=== PATIENT | female | born 1965 | race Hispanic/Latino ===

== ENCOUNTER 2018-08-24 20:10 | Emergency (ER) | payer OTHER ==
[2018-08-24] MEDS ORDERED: ACETAMINOPHEN 500 MG TAB ONE (20:38)
[2018-08-24 21:18] LABS: Urine Blood NEGATIVE (NEG); Urine Glucose TRACE (NEG); Urine Protein TRACE (NEG); Urine pH 8.5 (5.0-7.0)
[2018-08-24] MEDS ORDERED: IBUPROFEN 400 MG TAB ONE (21:45)
[2018-08-24 21:59] LABS: Urine Bacteria NONE SEEN /HPF (<20); Urine RBC <5 /HPF (NONE SEEN)
[2018-08-24 22:00] LABS: Urine Culture Reflex Order NOT NEEDED
--- NOTE | 2018-08-24 22:00 | ER ---
Nurse's Notes [facility] Name: Jessie Espinosa Age: 52 yrs Sex: Female : 1965 Arrival Date: 08/24/2018 Time: 20:15 Bed 27 Private MD: Diagnosis: Streptococcal pharyngitis;Pain in left leg;Pain in right leg Presentation: 08/24 20:26 Presenting complaint: Patient states: Fever and chills with body aches that started aj today. Transition of care: patient was not received from another setting of care. Onset of symptoms was August 24, 2018. Risk Assessment: Do you want to hurt yourself or someone else? Patient reports no desire to harm self or others. Initial Sepsis Screen: Does the patient meet any 2 criteria? No. Patient's initial sepsis screen is negative. Does the patient have a suspected source of infection? No. Patient's initial sepsis screen is negative. Care prior to arrival: None. 20:26 Method Of Arrival: Ambulatory aj 20:26 Acuity: JAMES 3 aj Triage Assessment: 20:28 General: Appears in no apparent distress. uncomfortable, Behavior is calm, cooperative, aj appropriate for age. Pain: Complains of pain in right leg and left leg. Neuro: Level of Consciousness is awake, alert, obeys commands, Oriented to person, place, time, situation, Appropriate for age. Respiratory: Airway is patent Trachea midline Respiratory effort is even, unlabored, Respiratory pattern is regular, symmetrical. Derm: Skin is intact, is healthy with good turgor, Skin is pink, warm \T\ dry. normal. 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 - Social history:: Smoking status: Patient/guardian denies using tobacco. - Ebola Screening: : Patient negative for fever greater than or equal to 101.5 degrees Fahrenheit, and additional compatible Ebola Virus Disease symptoms Patient denies exposure to infectious person Patient denies travel to an Ebola-affected area in the 21 days before illness onset No symptoms or risks identified at this time. Screenin:07 Abuse screen: Denies threats or abuse. Denies injuries from another. Nutritional mg2 screening: No deficits noted. Tuberculosis screening: No symptoms or risk factors identified. Fall Risk None identified. Assessment: 21:07 General: Appears in no apparent distress. comfortable, Behavior is calm, cooperative. mg2 Pain: Complains of pain in left leg and right leg Pain does not radiate. Pain currently is 2 out of 10 on a pain scale. Quality of pain is described as aching. Neuro: Level of Consciousness is awake, alert, obeys commands, Oriented to person, place, time, situation. Cardiovascular: Capillary refill < 3 seconds Patient's skin is warm and dry. Respiratory: Airway is patent Respiratory effort is even, unlabored, Respiratory pattern is regular, symmetrical. GI: No signs and/or symptoms were reported involving the gastrointestinal system. : No signs and/or symptoms were reported regarding the genitourinary system. EENT: No signs and/or symptoms were reported regarding the EENT system. Derm: Skin is intact, Skin is pink, warm \T\ dry. normal. Musculoskeletal: Circulation, motion, and sensation intact. Vital Signs: 20:28 BP 128 / 83; Pulse 117; Resp 20; Temp 101.8; Pulse Ox 99% on R/A; Weight 60.33 kg; aj Height 5 ft. 0 in. (152.40 cm); 22:52 BP 122 / 78; Pulse 95; Resp 18; Temp 97.9; Pulse Ox 100% on R/A; Pain 0/10; mg2 20:28 Body Mass Index 25.97 (60.33 kg, 152.40 cm) aj ED Course: 20:15 Patient arrived in ED. ds1 20:27 Triage completed. aj 20:28 Arm band placed on left wrist. Patient placed in an exam room. aj 20:32 Morales Peace RN is Primary Nurse. mg2 20:42 Jose Luis Higgins PA is PHCP. cp 20:42 Jose Luis Truong MD is Attending Physician. cp 21:06 No provider procedures requiring assistance completed. Patient did not have IV access mg2 during this emergency room visit. 21:08 Patient has correct armband on for positive identification. Pulse ox on. NIBP on. mg2 21:32 ultrasound at bedside. tl3 21:32 PO fluids given. tl3 22:01 US Extremity Venous W Compression Liu In Process Unspecified. EDMS Administered Medications: 20:35 Drug: Tylenol 1000 mg Route: PO; aj 21:39 Follow up: Response: No adverse reaction mg2 21:39 Drug: Ibuprofen 800 mg Route: PO; mg2 22:52 Follow up: Response: No adverse reaction; Marked relief of symptoms mg2 22:13 Drug: penicillin G Benzathine 2.4 million units {Note: 2ml on each buttocks.} Route: mg2 IM; Site: left gluteus; 22:52 Follow up: Response: No adverse reaction mg2 Outcome: 21:59 Discharge ordered by MD. cp 22:52 Discharged to home ambulatory, with family. mg2 22:52 Condition: stable 22:52 Discharge instructions given to patient, family, Instructed on discharge instructions, follow up and referral plans. medication usage, Demonstrated understanding of instructions, follow-up care, medications, Prescriptions given X 1. 22:53 Patient left the ED. mg2 Signatures: Dispatcher [employer] EDMS Elva Agarwal, RN RN Iliana Foote ds1 Jose Luis Higgins PA PA Majo Calderon, RN RN tl3 Morales Peace RN RN mg2
--- NOTE | 2018-08-24 22:00 | EDPHYS ---
Physician Documentation [facility] Name: Jessie Espinosa Age: 52 yrs Sex: Female : 1965 Arrival Date: 08/24/2018 Time: 20:15 Bed 27 Private MD: ED Physician Jose Luis Truong HPI: 08/24 20:45 This 52 yrs old Female presents to ER via Ambulatory with complaints of Leg cp Pain. 20:45 The patient presents with pain, that is acute, tenderness. The complaints affect the cp right leg and left leg. Associated signs and symptoms: Pertinent positives: calf tenderness, fever, body aches, sore throat. Treatment prior to arrival includes: no previous treatment. Patient reports grandchild recently diagnosed with strep. 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 - Social history:: Smoking status: Patient/guardian denies using tobacco. - Ebola Screening: : Patient negative for fever greater than or equal to 101.5 degrees Fahrenheit, and additional compatible Ebola Virus Disease symptoms Patient denies exposure to infectious person Patient denies travel to an Ebola-affected area in the 21 days before illness onset No symptoms or risks identified at this time. ROS: 20:50 Constitutional: Positive for body aches, fever, Negative for poor PO intake. cp 20:50 Eyes: Negative for injury, pain, redness, and discharge. cp 20:50 ENT: Positive for sore throat, Negative for drainage from ear(s), ear pain, difficulty swallowing, difficulty handling secretions. 20:50 Cardiovascular: Negative for chest pain, edema, palpitations. 20:50 Respiratory: Negative for cough, dyspnea on exertion, shortness of breath, wheezing. 20:50 Abdomen/GI: Negative for abdominal pain, nausea, vomiting, and diarrhea, anorexia, black/tarry stool, rectal bleeding. 20:50 Back: Positive for pain at rest, pain with movement. 20:50 MS/extremity: Positive for pain, of the right leg and left leg. 20:50 Skin: Negative for cellulitis, rash. 20:50 Neuro: Negative for altered mental status, headache, syncope, near syncope, weakness. 20:50 All other systems are negative. Exam: 21:00 Constitutional: The patient appears in no acute distress, alert, awake, cp non-diaphoretic, non-toxic, well developed, well nourished, febrile. 21:00 Head/Face: Normocephalic, atraumatic. Eyes: Pupils equal round and reactive to light, cp extra-ocular motions intact. Lids and lashes normal. Conjunctiva and sclera are non-icteric and not injected. Cornea within normal limits. Periorbital areas with no swelling, redness, or edema. 21:00 ENT: External ear(s): are unremarkable, Ear canal(s): are normal, clear, TM's: dullness, bilaterally, Nose: is normal, Mouth: Lips: moist, Oral mucosa: pink and intact, moist, Posterior pharynx: Airway: no evidence of obstruction, patent, Tonsils: with erythema, no enlargement, no exudate, swelling, is not appreciated, erythema, that is moderate, exudate, is not appreciated, Voice: is normal. 21:00 Neck: ROM/movement: is normal, is supple, without pain, no range of motions limitations, no meningismus, no nuchal rigidity. 21:00 Chest/axilla: Inspection: normal, Palpation: is normal, no crepitus, no tenderness. 21:00 Cardiovascular: Rate: tachycardic, Rhythm: regular. 21:00 Respiratory: the patient does not display signs of respiratory distress, Respirations: normal, no use of accessory muscles, no retractions, no splinting, no tachypnea, labored breathing, is not present, Breath sounds: are clear throughout, no decreased breath sounds, no stridor, no wheezing. 21:00 Abdomen/GI: Inspection: abdomen appears normal, Palpation: abdomen is soft and non-tender, in all quadrants, rebound tenderness, is not appreciated, voluntary guarding, is not appreciated, involuntary guarding, is not appreciated. 21:00 Back: pain, that is mild, CVA tenderness, is absent. 21:00 Skin: cellulitis, is not appreciated, no rash present. 21:00 Neuro: Orientation: to person, place \T\ time. Mentation: lucid, able to follow commands, Cerebellar function: is grossly normal, Motor: moves all fours, strength is normal, Sensation: no obvious gross deficits, Gait: is steady. Vital Signs: 20:28 BP 128 / 83; Pulse 117; Resp 20; Temp 101.8; Pulse Ox 99% on R/A; Weight 60.33 kg; aj Height 5 ft. 0 in. (152.40 cm); 22:52 BP 122 / 78; Pulse 95; Resp 18; Temp 97.9; Pulse Ox 100% on R/A; Pain 0/10; mg2 20:28 Body Mass Index 25.97 (60.33 kg, 152.40 cm) aj MDM: 20:42 Patient medically screened. cp 21:00 Differential diagnosis: strep throat, UTI, influenza, DVT. cp 21:55 Data reviewed: vital signs, nurses notes, lab test result(s), radiologic studies, cp ultrasound. 21:55 Counseling: I had a detailed discussion with the patient and/or guardian regarding: the cp historical points, exam findings, and any diagnostic results supporting the discharge/admit diagnosis, lab results, radiology results, to return to the emergency department if symptoms worsen or persist or if there are any questions or concerns that arise at home. Response to treatment: the patient's symptoms have markedly improved after treatment, and as a result, I will discharge patient. ED course: VSS. Strep test positive. Will treat with IM Bicillin and discharge to home for continued monitoring. 08/24 20:35 Order name: Strep; Complete Time: 21:33 08/24 21:33 Interpretation: Abnormal: GP A STREP SC \T\nbsp; GROUP A STREP SCREEN-- \T\nbsp; \T\nbsp; cp POSITIVE. 08/24 20:35 Order name: Flu; Complete Time: 21:51 aj 08/24 21:52 Interpretation: Reviewed. 08/24 21:02 Order name: US Extremity Venous W Compression Liu cp 08/24 21:02 Order name: Urine Microscopic Only; Complete Time: 22:00 cp 08/24 21:16 Order name: Urine Dipstick--Ancillary (enter results); Complete Time: 21:33 ms 08/24 21:34 Interpretation: Normal except: UPH 8.5. cp 08/24 21:16 Order name: Urine --Ancillary (enter results); Complete Time: 21:33 ms 08/24 21:02 Order name: Urine Dipstick-Ancillary (obtain specimen); Complete Time: 21:07 cp 08/24 21:02 Order name: Urine Test (obtain specimen); Complete Time: 21:07 cp Administered Medications: 20:35 Drug: Tylenol 1000 mg Route: PO; aj 21:39 Follow up: Response: No adverse reaction mg2 21:39 Drug: Ibuprofen 800 mg Route: PO; mg2 22:52 Follow up: Response: No adverse reaction; Marked relief of symptoms mg2 22:13 Drug: penicillin G Benzathine 2.4 million units {Note: 2ml on each buttocks.} Route: mg2 IM; Site: left gluteus; 22:52 Follow up: Response: No adverse reaction mg2 Disposition: 08/24/18 21:59 Discharged to Home. Impression: Streptococcal pharyngitis, Pain in left leg, Pain in right leg. - Condition is Stable. - Discharge Instructions: Musculoskeletal Pain, Strep Throat. - Prescriptions for Anaprox DS 550 mg Oral Tablet - take 1 tablet by ORAL route every 12 hours As needed; 20 tablet. - Medication Reconciliation Form, Thank You Letter, Antibiotic Education, Prescription Opioid Use, Work release form form. - Follow up: Private Physician; When: 2 - 3 days; Reason: Recheck today's complaints. - Problem is new. - Symptoms have improved. Addendum: 08/26/2018 06:40 Co-signature as Attending Physician, Jose Luis Truong MD I agree with the assessment and c bocanegra plan of care. Signatures: Dispatcher [employer] Elva Moreau RN RN aj Anderson, Corey, MD MD cha Page, Corey, PA PA cp Gardose, Michele, RN RN mg2 Corrections: (The following items were deleted from the chart) 08/24 22:53 21:59 08/24/2018 21:59 Discharged to Home. Impression: Streptococcal pharyngitis; Pain mg2 in left leg; Pain in right leg. Condition is Stable. Forms are Medication Reconciliation Form, Thank You Letter, Antibiotic Education, Prescription Opioid Use. Follow up: Private Physician; When: 2 - 3 days; Reason: Recheck today's complaints. Problem is new. Symptoms have improved. cp
[2018-08-24] MEDS ORDERED: PEN G BENZ LA 2.4 MU/4 ML SYRINGE IM ONE (22:04)
[2018-08-24 23:36] VITALS: BP 122/78; TEMP 97.9; O2SAT 100
--- NOTE | 2018-08-25 11:13 | RAD REPORT ---
EXAM DESCRIPTION: US - Extrem Venous W Compress Liu - 08/24/2018 10:00 pm CLINICAL HISTORY: PAIN Bilateral leg edema and swelling. COMPARISON: No comparisons TECHNIQUE: Real-time sonographic interrogation of the left and right lower extremity deep venous sys tems was performed. FINDINGS: Normal compressibility, flow augmentation, phasic flow and spontaneous flow is identified in both the left and right lower extremity deep venous systems. IMPRESSION: No sonographic evidence of left or right lower extremity deep venous thrombosis.
== END 2018-08-24 22:53 | disposition home or self-care (01) ==
LOC: ER 20:10
DX: J02.0 Streptococcal pharyngitis (principal); M79.605 Pain in left leg; M79.604 Pain in right leg; E78.00 Pure hypercholesterolemia, unspecified
CPT/HCPCS: 81003; 81015; 81025; 87081; 87804; 93970; 96372; 99284; J0561

== ENCOUNTER 2018-11-25 21:53 | Emergency (ER) | payer OTHER ==
--- OUTSIDE RECORDS SUMMARY | 2018-11-25 21:56 | XMS REPORT ---
:1965 [facility] Address [address] Hernandez [address] [place] [id number] Care Team Providers Name Role Phone Unavailable Unavailable Unavailable Payers Payer Name Policy Type Policy Number Effective Date Expiration Date Problems This patient has no known problems. Allergies, Adverse Reactions, Alerts Allergy Allergy Status Severity Reaction(s) Onset Inactive Treating Comments Name Type Date Date Clinician No Known DA Active U 2018-08 Allergies - 00:00:0 0 No Known DA Active U 2018-08 Allergies - 00:00:0 0 No Known DA Active MO 2011-06 Drug - Allergies 00:00:0 0 Medications This patient has no known medications.
[2018-11-25 22:39] LABS: Absolute Lymphocytes (CBC) 0.9 K/uL (0.7-4.9); Absolute Monocytes 0.3 K/uL (0.1-1.3); Absolute Neutrophil 6.4 K/uL (1.8-8.0); Basophils % 0.2 % (0-1.3); Hematocrit 41.8 % (36.0-45.0); Lymphocytes % 11.6 % (15.3-44.8); MPV 8.1 fL (7.6-11.3); Monocytes % 4.2 % (3.3-12.3); RBC Red Blood Cell Count 5.03 M/uL (3.86-4.86)
[2018-11-25] MEDS ORDERED: ONDANSETRON 4 MG/2 ML VIAL ONE (22:44)
[2018-11-25] MEDS ORDERED: NA CHLORIDE 0.9% 1,000 ML ONE (22:44)
[2018-11-25] MEDS ORDERED: KETOROLAC 30 MG/ML INJ ONE (22:52)
[2018-11-25 22:53] LABS: ALT/SGPT 31 U/L (12-78); AST/SGOT 20 U/L (15-37); Albumin 4.1 g/dL (3.4-5.0); Alkaline Phosphatase 103 U/L (45-117); BUN Blood Urea Nitrogen 13 mg/dL (7-18); Bicarbonate 29 mmol/L (21-32); Bilirubin Direct 0.1 mg/dL (0-0.2); Bilirubin Total 0.6 mg/dL (0.2-1.0); Glucose Level 134 mg/dL (74-106); Lipase 66 U/L (73-393); Potassium 3.7 mmol/L (3.5-5.1); Protein, Total 7.9 g/dL (6.4-8.2); Sodium Level 135 mmol/L (136-145)
[2018-11-26] MEDS ORDERED: DICYCLOMINE HCL 10 MG CAP ONE (00:38)
--- NOTE | 2018-11-26 01:10 | ER ---
Nurse's Notes [facility] Name: Jessie Espinosa Age: 52 yrs Sex: Female : 1965 Arrival Date: 11/25/2018 Time: 21:56 Bed 19 Private MD: Gian Anne Diagnosis: Vomiting;Diarrhea, unspecified Presentation: 11/25 22:15 Presenting complaint: Patient states: that she was traveling from [place] and ate some fc hamburgers her made. This am started to have abd cramping, vomiting and diarrhea. Transition of care: patient was not received from another setting of care. Onset of symptoms was November 25, 2018. Risk Assessment: Do you want to hurt yourself or someone else? Patient reports no desire to harm self or others. Initial Sepsis Screen: Does the patient meet any 2 criteria? HR > 90 bpm. Yes Does the patient have a suspected source of infection? No. Patient's initial sepsis screen is negative. Care prior to arrival: None. 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 - Social history:: Smoking status: Patient/guardian denies using tobacco, Patient/guardian denies using alcohol, street drugs. - Ebola Screening: : Patient negative for fever greater than or equal to 101.5 degrees Fahrenheit, and additional compatible Ebola Virus Disease symptoms Patient denies exposure to infectious person Patient denies travel to an Ebola-affected area in the 21 days before illness onset. Screenin:17 Abuse screen: Denies threats or abuse. Nutritional screening: No deficits noted. fc Tuberculosis screening: No symptoms or risk factors identified. Fall Risk None identified. Assessment: 22:22 General: Appears in no apparent distress. uncomfortable, Behavior is calm, cooperative, jd3 appropriate for age. Pain: Complains of pain in abdomen Quality of pain is described as crampy, tender. Neuro: Level of Consciousness is awake, alert, obeys commands, Oriented to person, place, time, situation. Cardiovascular: Capillary refill < 3 seconds Patient's skin is warm and dry. Respiratory: Airway is patent Respiratory effort is even, unlabored, Respiratory pattern is regular, symmetrical, Breath sounds are clear bilaterally. GI: Abdomen is round non-distended, Bowel sounds present X 4 quads. Abd is soft Abdomen is tender to palpation Reports diarrhea, nausea, vomiting. : No signs and/or symptoms were reported regarding the genitourinary system. EENT: No signs and/or symptoms were reported regarding the EENT system. Derm: Skin is intact, Skin is dry, Skin is normal, Skin temperature is warm. Musculoskeletal: Circulation, motion, and sensation intact. Range of motion: intact in all extremities. 23:42 Reassessment: Patient appears in no apparent distress at this time. Patient and/or jd3 family updated on plan of care and expected duration. Pain level reassessed. Patient is alert, oriented x 3, equal unlabored respirations, skin warm/dry/pink. Vital Signs: 22:15 BP 129 / 90; Pulse 108; Resp 18; Temp 100.0(O); Pulse Ox 98% on R/A; Weight 59.87 kg fc (R); Height 5 ft. 0 in. (152.40 cm) (R); Pain 10/10; 23:42 BP 112 / 73; Pulse 91; Resp 17 S; Pulse Ox 95% on R/A; jd3 11/26 00:42 BP 114 / 79; Pulse 92; Resp 16 S; Pulse Ox 95% on R/A; jd3 11/25 22:15 Body Mass Index 25.78 (59.87 kg, 152.40 cm) ED Course: 11/25 21:56 Patient arrived in ED. am2 21:56 Gian Anne MD is Private Physician. am2 22:13 Frank Tran MD is Attending Physician. gs 22:13 Josué Jeffrey RN is Primary Nurse. jd3 22:15 Arm band placed on Patient placed in an exam room, on a stretcher. fc 22:16 Triage completed. fc 22:17 Patient has correct armband on for positive identification. Bed in low position. Call light in reach. Side rails up X 1. Pulse ox on. NIBP on. 22:17 No provider procedures requiring assistance completed. 22:30 Inserted saline lock: 22 gauge in right antecubital area, using aseptic technique. Blood collected. 22:38 Initial lab(s) drawn, by me, sent to lab. 11/26 01:35 IV discontinued, intact, bleeding controlled, No redness/swelling at site. Pressure cc3 dressing applied. Administered Medications: 11/25 22:40 Drug: NS 0.9% 1000 ml Route: IV; Rate: 1 bolus; Site: right antecubital; [facility] 11/26 01:01 Follow up: Response: No adverse reaction; IV Status: Completed infusion [facility] 11/25 22:41 Drug: Zofran 4 mg Route: IVP; Site: right antecubital; d3 11/26 01:01 Follow up: Response: No adverse reaction [facility] 11/25 22:50 Drug: TORadol 15 mg Route: IVP; Site: right antecubital; jd3 11/26 01:00 Follow up: Response: No adverse reaction jd3 00:33 Drug: Bentyl 10 mg Route: PO; jd3 01:01 Follow up: Response: No adverse reaction jd3 01:30 Drug: [place] 5 mg-325 mg 1 tabs Route: PO; cc3 01:35 Follow up: Response: No adverse reaction cc3 Outcome: 01:09 Discharge ordered by . 01:35 Discharged to home ambulatory, with family. cc3 01:35 Condition: stable 01:35 Discharge instructions given to patient, family, Instructed on discharge instructions, follow up and referral plans. medication usage, Demonstrated understanding of instructions, follow-up care, medications, Prescriptions given X 1. 01:37 Patient left the ED. cc3 Signatures: Janine Barry RN RN Elva Freitas Gregory, MD MD gs Davies, Jonathon, RN RN jAnh Woodruff cc3 Inez Vargas
--- NOTE | 2018-11-26 01:10 | EDPHYS ---
Physician Documentation [facility] Name: Jessie Espinosa Age: 52 yrs Sex: Female : 1965 Arrival Date: 11/25/2018 Time: 21:56 Bed 19 Private MD: Gian Anne ED Physician Frank Tran HPI: 11/26 00:58 This 52 yrs old Female presents to ER via Ambulatory with complaints of gs Vomiting/Diarrhea, Abdominal Cramping. 00:58 The patient presents to the emergency department with nausea, vomiting, diarrhea, gs abdominal pain, of the right upper quadrant, left upper quadrant, right lower quadrant and left lower quadrant, described as crampy. Onset: The symptoms/episode began/occurred gradually. Possible causes: bad food exposure. The symptoms are aggravated by food , The symptoms are alleviated by nothing. Associated signs and symptoms: Pertinent negatives: constipation, dysuria, fever, GI bleeding. Severity of symptoms: At their worst the symptoms were moderate in the emergency department the symptoms have improved moderately. The patient has experienced similar episodes in the past, a few times. 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 - Social history:: Smoking status: Patient/guardian denies using tobacco, Patient/guardian denies using alcohol, street drugs. - Ebola Screening: : Patient negative for fever greater than or equal to 101.5 degrees Fahrenheit, and additional compatible Ebola Virus Disease symptoms Patient denies exposure to infectious person Patient denies travel to an Ebola-affected area in the 21 days before illness onset. ROS: 11/26 00:58 All other systems are negative. gs Exam: 00:58 Head/Face: Normocephalic, atraumatic. Eyes: Pupils equal round and reactive to light, gs extra-ocular motions intact. Lids and lashes normal. Conjunctiva and sclera are non-icteric and not injected. Cornea within normal limits. Periorbital areas with no swelling, redness, or edema. ENT: Nares patent. No nasal discharge, no septal abnormalities noted. Tympanic membranes are normal and external auditory canals are clear. Oropharynx with no redness, swelling, or masses, exudates, or evidence of obstruction, uvula midline. Mucous membranes moist. Neck: Trachea midline, no thyromegaly or masses palpated, and no cervical lymphadenopathy. Supple, full range of motion without nuchal rigidity, or vertebral point tenderness. No Meningismus. Chest/axilla: Normal chest wall appearance and motion. Nontender with no deformity. No lesions are appreciated. Cardiovascular: Regular rate and rhythm with a normal S1 and S2. No gallops, murmurs, or rubs. Normal PMI, no JVD. No pulse deficits. Respiratory: Lungs have equal breath sounds bilaterally, clear to auscultation and percussion. No rales, rhonchi or wheezes noted. No increased work of breathing, no retractions or nasal flaring. Back: No spinal tenderness. No costovertebral tenderness. Full range of motion. Skin: Warm, dry with normal turgor. Normal color with no rashes, no lesions, and no evidence of cellulitis. MS/ Extremity: Pulses equal, no cyanosis. Neurovascular intact. Full, normal range of motion. 00:58 Constitutional: The patient appears alert, awake. 00:58 Abdomen/GI: Bowel sounds: normal, Palpation: mild abdominal tenderness, in all quadrants, mass, is not appreciated, rebound tenderness, is not appreciated, voluntary guarding, is not appreciated, involuntary guarding, is not appreciated. Vital Signs: 11/25 22:15 BP 129 / 90; Pulse 108; Resp 18; Temp 100.0(O); Pulse Ox 98% on R/A; Weight 59.87 kg fc (R); Height 5 ft. 0 in. (152.40 cm) (R); Pain 10/10; 23:42 BP 112 / 73; Pulse 91; Resp 17 S; Pulse Ox 95% on R/A; jd3 11/26 00:42 BP 114 / 79; Pulse 92; Resp 16 S; Pulse Ox 95% on R/A; jd3 11/25 22:15 Body Mass Index 25.78 (59.87 kg, 152.40 cm) fc MDM: 11/25 22:28 Patient medically screened. 11/26 00:58 Differential diagnosis: diverticulitis, viral gastroenteritis, gastroenteritis. Data reviewed: vital signs, nurses notes. Response to treatment: the patient's symptoms have markedly improved after treatment, patient is well hydrated. and as a result, I will discharge patient. 11/25 22:30 Order name: Basic Metabolic Panel; Complete Time: 00:03 11/25 22:30 Order name: CBC with Diff; Complete Time: 00:03 11/25 22:30 Order name: Hepatic Function; Complete Time: 00: 11/25 22:30 Order name: Lipase; Complete Time: 00: 11/25 22:30 Order name: Urine Microscopic Only; Complete Time: : 11/26 01:00 Order name: Urine Dipstick--Ancillary (enter results); Complete Time: : [facility] 11/25 22:30 Order name: IV Saline Lock; Complete Time: : 11/25 22:31 Order name: EKG; Complete Time: : [facility] 11/26 01:00 Order name: Urine --Ancillary (enter results); Complete Time: : [facility] 11/25 22:30 Order name: Labs collected and sent; Complete Time: : 11/25 22:30 Order name: Urine Test (obtain specimen); Complete Time: 01:02 11/25 22:30 Order name: Urine Dipstick-Ancillary (obtain specimen); Complete Time: 01: 11/25 22:30 Order name: EKG - Nurse/Tech; Complete Time: 23:26 Administered Medications: 11/25 22:40 Drug: NS 0.9% 1000 ml Route: IV; Rate: 1 bolus; Site: right antecubital; [facility] 11/26 01:01 Follow up: Response: No adverse reaction; IV Status: Completed infusion [facility] 11/25 22:41 Drug: Zofran 4 mg Route: IVP; Site: right antecubital; [facility] 11/26 01:01 Follow up: Response: No adverse reaction [facility] 11/25 22:50 Drug: TORadol 15 mg Route: IVP; Site: right antecubital; jd3 11/26 01:00 Follow up: Response: No adverse reaction jd3 00:33 Drug: Bentyl 10 mg Route: PO; jd3 01:01 Follow up: Response: No adverse reaction jd3 01:30 Drug: Bantam 5 mg-325 mg 1 tabs Route: PO; cc3 01:35 Follow up: Response: No adverse reaction cc3 Disposition: 11/26/18 01:09 Discharged to Home. Impression: Vomiting, Diarrhea, unspecified. - Condition is Stable. - Discharge Instructions: Diarrhea, Adult, Nausea and Vomiting, Adult. - Prescriptions for Zofran 4 mg Oral Tablet - take 1 tablet by ORAL route every 12 hours As needed; 6 tablet. - Medication Reconciliation Form, Thank You Letter, Antibiotic Education, Prescription Opioid Use form. - Follow up: Private Physician; When: 2 - 3 days; Reason: Re-evaluation by your physician. Signatures: Dispatcher [employer] EDJanine Agarwal RN RN Frank Tran MD MD Josué Jeffrey RN RN jAnh Woodruff cc3 Corrections: (The following items were deleted from the chart) 01:37 01:09 11/26/2018 01:09 Discharged to Home. Impression: Vomiting; Diarrhea, unspecified. cc3 Condition is Stable. Forms are Medication Reconciliation Form, Thank You Letter, Antibiotic Education, Prescription Opioid Use. Follow up: Private Physician; When: 2 - 3 days; Reason: Re-evaluation by your physician.
[2018-11-26 01:19] LABS: Urine Blood NEGATIVE (NEG); Urine Glucose NEGATIVE (NEG); Urine Protein NEGATIVE (NEG); Urine Specific Gravity <1.005 (1.005-1.030); Urine pH 6.5 (5.0-7.0)
[2018-11-26 01:29] LABS: Urine Bacteria <20 /HPF (<20); Urine Culture Reflex Order NOT NEEDED; Urine RBC <5 /HPF (NONE SEEN)
[2018-11-26] MEDS ORDERED: HYDROCODONE/APAP 5/325 MG TAB ONE (01:37)
[2018-11-26 01:50] VITALS: TEMP 100
[2018-11-26 01:51] VITALS: O2SAT 95
[2018-11-26 01:53] VITALS: BP 114/79
--- NOTE | 2018-11-26 08:45 | EKG ---
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
== END 2018-11-26 01:37 | disposition home or self-care (01) ==
LOC: ER 21:53
DX: R11.10 Vomiting, unspecified (principal); R19.7 Diarrhea, unspecified; I10 Essential (primary) hypertension
CPT/HCPCS: 36415; 80048; 80076; 81003; 81015; 81025; 83690; 85025; 93005; 96361; 96374; 96375; 99284; J2405; J7030

== ENCOUNTER 2018-11-27 18:18 | Emergency (ER) | payer OTHER ==
--- OUTSIDE RECORDS SUMMARY | 2018-11-27 18:21 | XMS REPORT ---
:1965 [facility] [address] Hernandez [address] [place] [id number] Care Team Providers Name Role Phone Unavailable [...] - 00:00:0 0 No Known DA Active [place] 2011-06 Drug - Allergies 00:00:0 0 Medications This patient has no known medications.
--- NOTE | 2018-11-27 19:08 | RAD REPORT ---
EXAM DESCRIPTION: RAD - Elbow Left 3 View - 11/27/2018 6:55 pm CLINICAL HISTORY: PAIN COMPARISON: No comparisons FINDINGS: No fracture or dislocation is seen. No joint effusion.
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
[2018-11-27] MEDS ORDERED: IBUPROFEN 400 MG TAB ONE (19:57)
[2018-11-27 20:08] VITALS: BP 143/92; TEMP 99.2; O2SAT 99
== END 2018-11-27 19:55 | disposition home or self-care (01) ==
LOC: ER 18:18
DX: S50.02XA Contusion of left elbow, initial encounter (principal); W22.8XXA Striking against or struck by other objects, initial encounter; Y92.009 Unspecified place in unspecified non-institutional (private) residence as the place of occurrence of the external cause
CPT/HCPCS: 99283

== ENCOUNTER 2019-04-16 01:55 | Emergency (ER) | payer OTHER, SELFPAY ==
--- OUTSIDE RECORDS SUMMARY | 2019-04-16 01:57 | XMS REPORT ---
:1965 [facility] [address] Hernandez [address] [place] [address] Care Team Providers Name Role Phone Unavailable [...] - 00:00:0 0 No Known DA Active [place] 2011-06 Drug - Allergies 00:00:0 0 Medications This patient has no known medications.
[2019-04-16] MEDS ORDERED: KETOROLAC 30 MG/ML INJ ONE (02:56)
[2019-04-16 03:18] LABS: Urine Culture Reflex Order NOT NEEDED
[2019-04-16 03:19] LABS: Urine Bacteria <20 /HPF (<20); Urine RBC 20-50 /HPF (NONE SEEN)
[2019-04-16 03:20] LABS: Urine Blood 3+ (NEG); Urine Glucose TRACE (NEG); Urine Protein 3+ (NEG)
--- NOTE | 2019-04-16 03:24 | ER ---
Nurse's Notes [facility] Name: Jessie Espinosa Age: 53 yrs Sex: Female : 1965 Arrival Date: 04/16/2019 Time: 02:00 Bed 8 Private MD: Gian Anne Diagnosis: Urinary tract infection, site not specified Presentation: 04/16 02:15 Presenting complaint: Patient states: she woke up around midnight and is having bb abdominal pain with difficulty urinating. Transition of care: patient was not received from another setting of care. Onset of symptoms was April 16, 2019. Risk Assessment: Do you want to hurt yourself or someone else? Patient reports no desire to harm self or others. Initial Sepsis Screen: Does the patient meet any 2 criteria? No. Patient's initial sepsis screen is negative. Does the patient have a suspected source of infection? No. Patient's initial sepsis screen is negative. Care prior to arrival: None. 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 - Social history:: Smoking status: unknown. - Ebola Screening: : No symptoms or risks identified at this time. Screenin:35 Abuse screen: Denies threats or abuse. Denies injuries from another. Nutritional aa1 screening: No deficits noted. Tuberculosis screening: No symptoms or risk factors identified. Fall Risk None identified. Assessment: 02:35 General: Appears in no apparent distress. comfortable, Behavior is calm, cooperative, aa1 appropriate for age. Pain: Complains of pain in suprapubic area Is continuous. Neuro: Level of Consciousness is awake, alert, obeys commands, Oriented to person, place, time, situation, Moves all extremities. Full function Gait is steady. Respiratory: Airway is patent Respiratory effort is even, unlabored, Respiratory pattern is regular, symmetrical. GI: Abdomen is non-distended, Bowel sounds present X 4 quads. Abd is soft X 4 quads Abdomen is tender to palpation in suprapubic area. : Reports pain with urination, urgency. EENT: No signs and/or symptoms were reported regarding the EENT system. Derm: Skin is intact, is healthy with good turgor, Skin is pink, warm \T\ dry. Musculoskeletal: Circulation, motion, and sensation intact. Capillary refill < 3 seconds. 03:31 Reassessment: Patient appears in no apparent distress at this time. Patient is alert, aa1 oriented x 3, equal unlabored respirations, skin warm/dry/pink. Discussed d/c \T\ f/u instructions with pt; denies questions or concerns at this time. Ambulatory to lobby with steady gait. Vital Signs: 02:18 BP 133 / 83; Pulse 70; Resp 16 S; Temp 97.8(O); Pulse Ox 100% on R/A; Weight 58.97 kg bb (R); Height 5 ft. 0 in. (152.40 cm) (R); Pain 9/10; 03:31 BP 129 / 78; Pulse 73; Resp 16; Temp 97.9; Pulse Ox 99% on R/A; Pain 5/10; aa1 02:18 Body Mass Index 25.39 (58.97 kg, 152.40 cm) bb ED Course: 02:00 Patient arrived in ED. es 02:00 Gian Anne MD is Private Physician. es 02:17 [facility] jr[facility] 02:17 Jose Luis Truong MD is Attending Physician. jr8 02:17 Triage completed. bb 02:18 Arm band placed on Patient placed in an exam room, on a stretcher, on pulse oximetry. bb 02:35 Patient has correct armband on for positive identification. Placed in gown. Bed in low aa1 position. Call light in reach. Pulse ox on. NIBP on. Warm blanket given. 02:46 Urine collected: clean catch specimen, clear. aa1 02:57 Haritha Loza, ADRIANNA is Primary Nurse. aa1 03:23 Gian Anne MD is Referral Physician. jr8 03:31 No provider procedures requiring assistance completed. Patient did not have IV access aa1 during this emergency room visit. Administered Medications: 02:45 Drug: TORadol - Ketorolac 15 mg Route: IM; Site: left deltoid; aa1 03:33 Follow up: Response: No adverse reaction; Pain is decreased aa1 03:37 Drug: Macrobid 100 mg Route: PO; aa1 03:37 Follow up: Response: Medication administered at discharge. aa1 Outcome: 03:23 Discharge ordered by . jr8 03:31 Discharged to home ambulatory. aa1 03:31 Condition: good 03:31 Discharge instructions given to patient, Instructed on discharge instructions, follow up and referral plans. medication usage, Demonstrated understanding of instructions, follow-up care, medications, Prescriptions given X 2. 03:38 Patient left the ED. aa1 Signatures: Haritha Loza RN RN aa1 Asha Melo Brenda, RN RN Nawaf Zhang PA PA jr8
--- NOTE | 2019-04-16 03:24 | EDPHYS ---
Physician Documentation [facility] Name: Jessie Espinosa Age: 53 yrs Sex: Female : 1965 Arrival Date: 04/16/2019 Time: 02:00 Bed 8 Private MD: Gian Anne ED Physician Jose Luis Truong HPI: 04/16 02:48 This 53 yrs old Female presents to ER via Ambulatory with complaints of jr8 Urgency, Abdominal pain. 02:48 The patient presents with urinary symptoms, frequency, urgency. Onset: The jr8 symptoms/episode began/occurred acutely, today. Modifying factors: The symptoms are alleviated by nothing, the symptoms are aggravated by nothing. Associated signs and symptoms: Pertinent positives: abdominal pain. Severity of symptoms: At their worst the symptoms were moderate, in the emergency department the symptoms are unchanged. The patient has not experienced similar symptoms in the past. The patient has not recently seen a physician. 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 - Social history:: Smoking status: unknown. - Ebola Screening: : No symptoms or risks identified at this time. ROS: 02:48 Eyes: Negative for injury, pain, redness, and discharge, ENT: Negative for injury, jr8 pain, and discharge, Neck: Negative for injury, pain, and swelling, Cardiovascular: Negative for chest pain, palpitations, and edema, Respiratory: Negative for shortness of breath, cough, wheezing, and pleuritic chest pain, Back: Negative for injury and pain, MS/Extremity: Negative for injury and deformity, Skin: Negative for injury, rash, and discoloration, Neuro: Negative for headache, weakness, numbness, tingling, and seizure. 02:48 Abdomen/GI: Positive for abdominal pain, Negative for nausea, vomiting, and diarrhea, constipation, abdominal cramps, abdominal distension, anorexia, dysphagia, hematemesis, black/tarry stool, rectal pain, rectal bleeding, bowel incontinence, flatulence. 02:48 : Positive for urinary symptoms, urinary frequency, Negative for pelvic pain, vaginal bleeding, vaginal discharge, vaginal itching. Exam: 02:48 Eyes: Pupils equal round and reactive to light, extra-ocular motions intact. Lids and jr8 lashes normal. Conjunctiva and sclera are non-icteric and not injected. Cornea within normal limits. Periorbital areas with no swelling, redness, or edema. ENT: Nares patent. No nasal discharge, no septal abnormalities noted. Tympanic membranes are normal and external auditory canals are clear. Oropharynx with no redness, swelling, or masses, exudates, or evidence of obstruction, uvula midline. Mucous membranes moist. Neck: Trachea midline, no thyromegaly or masses palpated, and no cervical lymphadenopathy. Supple, full range of motion without nuchal rigidity, or vertebral point tenderness. No Meningismus. Cardiovascular: Regular rate and rhythm with a normal S1 and S2. No gallops, murmurs, or rubs. Normal PMI, no JVD. No pulse deficits. Respiratory: Lungs have equal breath sounds bilaterally, clear to auscultation and percussion. No rales, rhonchi or wheezes noted. No increased work of breathing, no retractions or nasal flaring. Back: No spinal tenderness. No costovertebral tenderness. Full range of motion. Skin: Warm, dry with normal turgor. Normal color with no rashes, no lesions, and no evidence of cellulitis. MS/ Extremity: Pulses equal, no cyanosis. Neurovascular intact. Full, normal range of motion. Neuro: Awake and alert, GCS 15, oriented to person, place, time, and situation. Cranial nerves II-XII grossly intact. Motor strength 5/5 in all extremities. Sensory grossly intact. Cerebellar exam normal. Normal gait. 02:48 Abdomen/GI: Inspection: abdomen appears normal, Bowel sounds: active, all quadrants, Palpation: soft, in all quadrants, mild abdominal tenderness, in the suprapubic area, mass, is not appreciated, rebound tenderness, is not appreciated, voluntary guarding, is not appreciated, involuntary guarding, is not appreciated, no appreciated organomegaly, Indicators: McBurney's point is not tender, Colón's sign is negative, Rovsing's sign is negative, Liver: tenderness, is not appreciated. Vital Signs: 02:18 BP 133 / 83; Pulse 70; Resp 16 S; Temp 97.8(O); Pulse Ox 100% on R/A; Weight 58.97 kg bb (R); Height 5 ft. 0 in. (152.40 cm) (R); Pain 9/10; 03:31 BP 129 / 78; Pulse 73; Resp 16; Temp 97.9; Pulse Ox 99% on R/A; Pain 5/10; aa1 02:18 Body Mass Index 25.39 (58.97 kg, 152.40 cm) MDM: 02:17 Patient medically screened. [facility] 02:48 Data reviewed: vital signs, nurses notes, lab test result(s), and as a result, I will jr8 discharge patient. Data interpreted: Pulse oximetry: on room air is 100 %. Interpretation: normal. Counseling: I had a detailed discussion with the patient and/or guardian regarding: the historical points, exam findings, and any diagnostic results supporting the discharge/admit diagnosis, lab results, the need for outpatient follow up, a family practitioner, to return to the emergency department if symptoms worsen or persist or if there are any questions or concerns that arise at home. 04/16 02:21 Order name: Urine Culture [facility] 04/16 02:21 Order name: Urine Microscopic Only; Complete Time: 03:22 [facility] 04/16 02:21 Order name: Urine Dipstick-Ancillary (obtain specimen); Complete Time: 02:59 [facility] 04/16 03:00 Order name: Urine Dipstick--Ancillary (enter results); Complete Time: 03:22 mw2 Administered Medications: 02:45 Drug: TORadol - Ketorolac 15 mg Route: IM; Site: left deltoid; aa1 03:33 Follow up: Response: No adverse reaction; Pain is decreased aa1 03:37 Drug: Macrobid 100 mg Route: PO; aa1 03:37 Follow up: Response: Medication administered at discharge. aa1 Disposition: 06:39 Co-signature as Attending Physician, Jose Luis Truong MD I agree with the assessment and alexis plan of care. Disposition: 04/16/19 03:23 Discharged to Home. Impression: Urinary tract infection, site not specified. - Condition is Stable. - Discharge Instructions: Dysuria, Urinary Tract Infection, Adult. - Prescriptions for Pyridium 200 mg Oral Tablet - take 1 tablet by ORAL route every 8 hours for 3 days; 9 tablet. Macrobid 100 mg Oral Capsule - take 1 capsule by ORAL route every 12 hours for 7 days; 14 capsule. - Medication Reconciliation Form, Thank You Letter, Antibiotic Education, Prescription Opioid Use form. - Follow up: Gian Anne; When: 5 - 6 days; Reason: Recheck today's complaints, Continuance of care, Re-evaluation by your physician. - Problem is new. - Symptoms have improved. Signatures: Dispatcher [employer] EDHaritha Brandt RN RN aa1 Jose Luis Truong MD MD cha Ballard, Brenda, RN RN Nawaf Zhang PA PA jr8 Corrections: (The following items were deleted from the chart) 03:38 03:23 04/16/2019 03:23 Discharged to Home. Impression: Urinary tract infection, site aa1 not specified. Condition is Stable. Discharge Instructions: Dysuria, Urinary Tract Infection, Adult. Prescriptions for Pyridium 200 mg Oral Tablet - take 1 tablet by ORAL route every 8 hours for 3 days; 9 tablet, Macrobid 100 mg Oral Capsule - take 1 capsule by ORAL route every 12 hours for 7 days; 14 capsule. and Forms are Medication Reconciliation Form, Thank You Letter, Antibiotic Education, Prescription Opioid Use. Follow up: Gian Anne; When: 5 - 6 days; Reason: Recheck today's complaints, Continuance of care, Re-evaluation by your physician. Problem is new. Symptoms have improved. jr8
[2019-04-16] MEDS ORDERED: NITROFURAN MACRO 100 MG CAP PO ONE (03:42)
[2019-04-16 05:09] VITALS: BP 129/78; TEMP 97.9; O2SAT 99
== END 2019-04-16 03:38 | disposition home or self-care (01) ==
LOC: ER 01:55
DX: N39.0 Urinary tract infection, site not specified (principal); F41.9 Anxiety disorder, unspecified
CPT/HCPCS: 81003; 81015; 87086; 87088; 96372; 99284

== ENCOUNTER 2024-12-21 17:31 | Emergency (ER) | payer OTHER ==
[2024-12-21 18:15] LABS: PT Prothrombin Time 11.9 SECONDS (9.4-12.5); Protime INR 1.13
[2024-12-21] MEDS ORDERED: ONDANSETRON 4 MG/2 ML VIAL ONE (18:17)
[2024-12-21] MEDS ORDERED: ASPIRIN EC 81 MG TAB PO ONE (18:18)
[2024-12-21] MEDS ORDERED: MORPHINE 4 MG/ML SYR ONE (18:18)
[2024-12-21] MEDS ORDERED: NA CHLORIDE 0.9% 1,000 ML ONE (18:18)
[2024-12-21 18:21] LABS: Absolute Basophils 0.1 K/uL (0-0.5); Absolute Lymphocytes (CBC) 2.9 K/uL (0.7-4.9); Absolute Monocytes 0.5 K/uL (0.1-1.3); Absolute Neutrophil 2.4 K/uL (1.8-8.0); Hematocrit 37.9 % (36.0-45.0); Hemoglobin 12.8 g/dL (12.0-15.0); Lymphocytes % 49.3 % (15.3-44.8); MCH 27.8 pg (27.0-35.0); MCHC 33.8 g/dL (32.0-36.0); MCV 82.1 fL (80-100); MPV 7.7 fL (7.6-11.3); Monocytes % 8.4 % (3.3-12.3); Neutrophils % 41.3 % (41.7-73.7); Nucleated Red Blood Cells % 0.1 % (0-0); Platelets 195 thou/uL (152-406); RBC Red Blood Cell Count 4.62 M/uL (3.86-4.86); Red Cell Distribution Width 13.9 % (12.1-15.2)
[2024-12-21 18:27] LABS: ALT/SGPT 23 U/L (13-56); AST/SGOT 15 U/L (15-37); Albumin 3.7 g/dL (3.4-5.0); Alkaline Phosphatase 91 U/L (45-117); Anion Gap 9.9 mEq/L (5.0-15.0); BUN Blood Urea Nitrogen 12 mg/dL (7-18); Bicarbonate 27 mEq/L (21-32); Bilirubin Direct < 0.2 mg/dL (0-0.2); Bilirubin Indirect, Calculated 0.1 mg/dL (0.2-0.8); Bilirubin Total 0.3 mg/dL (0.2-1.0); Globulin 3.7 g/dL (2.3-3.5); Glomerular Filtration Rate 102 ml/min (=/>90); Glucose Level 111 mg/dL (74-106); Magnesium 1.8 mg/dL (1.6-2.4); NT PRO-BNP 52 pg/mL (<125); Potassium 3.9 mEq/L (3.5-5.1); Protein, Total 7.4 g/dL (6.4-8.2); Sodium Level 137 mEq/L (136-145); Troponin High Sensitivity 9.4 pg/mL (<58.9)
--- NOTE | 2024-12-21 18:48 | RAD REPORT ---
EXAM: Chest Single View HISTORY: CHEST PAIN COMPARISON: None. FINDINGS: LUNGS/PLEURA: The lungs are clear. No pleural effusions or pneumothorax. No pulmonary edema. MEDIASTINUM: The mediastinal silhouette is within normal limits. CARDIAC: The cardiac silhouette is within normal limits. UPPER ABDOMEN: No significant abnormality. BONES: No acute abnormality. LINES/TUBES/OTHER: N/A IMPRESSION: No evidence of acute cardiopulmonary disease.
--- NOTE | 2024-12-21 20:50 | RAD REPORT ---
EXAMINATION: CT HEAD WITHOUT CONTRAST CLINICAL INDICATION: Female, 59 years old.HEADACHE TECHNIQUE: Axial CT images from the skull base to the vertex without intravenous contrast. Coronal an d sagittal reformatted images were created from the data set. One or more of the following dose reduction techniques were used: Automated exposure control, adjustment of the mA and/or kV according to patient size, and/or iterative reconstruction. Unless otherwise specified, incidental findings do not require dedicated imaging follow-up. [id number]. COMPARISON: No prior exam. FINDINGS: INTRACRANIAL: No acute intracranial hemorrhage. No hydrocephalus. No mass effect or midline shift. No significant white matter disease. VASCULATURE: No visualized abnormalities in the arteries or dural venous sinuses. SCALP/SKULL: No significant soft tissue or osseous abnormalities. SINUSES: The visualized paranasal sinuses and mastoid air cells are predominantly clear. IMPRESSION: No acute intracranial abnormality.
--- NOTE | 2024-12-21 20:58 | RAD REPORT ---
EXAM: Angio Aorta For Dissection CLINICAL INDICATION: Female, 59 years chest pain TECHNIQUE: CTA of the aorta was obtained including the chest, abdomen and pelvis, with IV contrast, a s per department protocol. Axial, sagittal and coronal reconstructions were obtained. Post-processing was applied at the acquisition scanner with concurrent physician supervision which in cludes 3D reconstructions, MIPs, volume rendered images and/or shaded surface rendering. One or more of the following dose reduction techniques were used: Automated exposure control, adjustment of the mA and/or kV according to the patient size, and/or iterative reconstruction. Unless otherwise specified, incidental findings do not require dedicated imaging follow-up. [id number]. COMPARISON: No prior exam. FINDINGS: Chest: LOWER NECK: Visualized thyroid gland and soft tissues are normal. LUNGS AND AIRWAYS: Airways are clear. No evidence of airspace or interstitial process.No suspicious a nd/or stable pulmonary nodules. PLEURA: No pleural effusion. No pneumothorax. Hemidiaphragms are normally positioned. MEDIASTINUM AND LYMPH NODES: No mediastinal mass or fluid collection. Normal size mediastinal, hilar, and axillary lymph nodes. THORACIC AORTA: No thoracic aortic aneurysm. PULMONARY ARTERIES: Caliber is within normal limits. No pulmonary embolus. HEART: Normal heart size. No coronary calcifications.No significant pericardial effusion. Abdomen/Pelvis UPPER GI: No significant abnormality. LIVER: Hepatic steatosis, but otherwise unremarkable. GALLBLADDER/BILE DUCTS: Cholecystectomy. Mild extra-hepatic biliary ductal dilatation is likely relat ed to the post-cholecystectomy state. Consider correlating with LFT's.? PANCREAS: Atrophy, but otherwise unremarkable. SPLEEN: Unremarkable. ADRENALS: No adrenal masses. KIDNEYS AND URETERS: Normal size and contour. No hydronephrosis.No suspicious renal mass. ABDOMINAL AORTA AND OTHER VESSELS: Normal caliber aorta and IVC. PERITONEUM: No abnormal free fluid. No free air. LYMPH NODES: No pathologic lymphadenopathy. ABDOMINAL WALL: No significant abnormality. SMALL BOWEL/COLON: Small bowel has normal course and caliber. No colonic wall thickening or pericolon ic inflammatory changes.Normal appendix. URINARY BLADDER: Underdistended but grossly unremarkable. REPRODUCTIVE ORGANS: No pathologic process. MUSCULOSKELETAL: No acute or suspicious osseous abnormality. ADDITIONAL FINDINGS: None. IMPRESSION: No aortic aneurysm or dissection. No pulmonary embolus. No acute findings in the chest, abdomen, or p [place].
--- NOTE | 2024-12-21 22:09 | EDPHYS ---
Physician Documentation [facility] Name: Jessie Espinosa Age: 59 yrs Sex: Female : 1965 Arrival Date: 12/21/2024 Time: 17:31 Bed 8 Private MD: ED Physician Arvin Cunha HPI: 12/21 17:55 This 59 yrs old Female presents to ER via Wheelchair with complaints of cp Headache, Chest Pain. 17:55 The patient or guardian reports chest pain that is located primarily in the substernal cp area. 17:55 Onset: suddenly, just prior to arrival, while driving. The pain radiates to back. cp 17:55 Associated signs and symptoms: Pertinent positives: headache, Pertinent negatives: cp weakness. 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 Historical: - Allergies: 17:40 No Known Allergies; db - Home Meds: 17:40 Atenolol Oral [Active]; db - PMHx: 17:40 Anxiety; Hypertensive disorder; TACHYCARDIA; db - PSHx: 17:40 ABLATION; db - Immunization history:: Adult Immunizations unknown. - Infectious Disease History:: Denies. - Social history:: Smoking status: Patient denies any tobacco usage or history of. ROS: 17:56 Constitutional: Negative for body aches, chills, fever, poor PO intake, cp 17:56 Cardiovascular: Positive for chest pain, cp 17:56 Neuro: Positive for headache, 17:56 Eyes: Negative for injury, pain, redness, and discharge, cp 17:56 ENT: Negative for drainage from ear(s), ear pain, sore throat, difficulty swallowing, difficulty handling secretions, 17:56 Respiratory: Negative for cough, shortness of breath, wheezing, 17:56 Abdomen/GI: Negative for abdominal pain, vomiting, diarrhea, constipation, 17:56 : Negative for urinary symptoms, cp 17:56 All other systems are negative, Exam: 17:56 ECG was reviewed by the Attending Physician. cp 18:00 Constitutional: The patient appears in no acute distress, alert, awake, cp non-diaphoretic, non-toxic, well developed, well nourished, uncomfortable, 18:00 Head/Face: Normocephalic, atraumatic. cp 18:00 Eyes: Periorbital structures: appear normal, Conjunctiva: normal, no exudate, no injection, Sclera: no appreciated abnormality, Lids and lashes: appear normal, bilaterally, 18:00 ENT: External ear(s): are unremarkable, Nose: is normal, Mouth: Lips: moist, Oral mucosa: moist, Posterior pharynx: Airway: no evidence of obstruction, patent, 18:00 Chest/axilla: Inspection: normal, 18:00 Cardiovascular: Rate: normal, Rhythm: regular, Edema: is not appreciated, JVD: is not appreciated, 18:00 Respiratory: the patient does not display signs of respiratory distress, Respirations: normal, no use of accessory muscles, no retractions, labored breathing, is not present, Breath sounds: are clear throughout, no decreased breath sounds, no stridor, no wheezing, 18:00 Abdomen/GI: Inspection: abdomen appears normal, Palpation: abdomen is soft and non-tender, in all quadrants, 18:00 Back: CVA tenderness, is absent, 18:00 Neuro: Orientation: to person, place \T\ time. Mentation: is normal, Motor: moves all fours, strength is normal, Sensation: no obvious gross deficits, 21:32 ECG was reviewed by the Attending Physician. cp Vital Signs: 17:44 BP 138 / 91; Pulse 90; Resp 16; Temp 97.9; Pulse Ox 100% ; Weight 61.23 kg; Height 5 db ft. 0 in. ; Pain 10/10; 18:27 BP 116 / 84 LA; ll1 18:27 BP 123 / 87 RA; ll1 18:45 BP 112 / 70; Pulse 71; Resp 16; Pulse Ox 99% ; ll1 19:21 BP 110 / 72; Pulse 66; Resp 15; Pulse Ox 94% on R/A; al5 20:00 BP 100 / 67; Pulse 63; Resp 14; Pulse Ox 97% on R/A; al5 21:00 BP 120 / 74; Pulse 73; Resp 16; Pulse Ox 96% on R/A; al5 21:30 BP 111 / 68; Pulse 68; Resp 13; Pulse Ox 96% on R/A; al5 22:00 BP 115 / 77; Pulse 67; Resp 15; Pulse Ox 97% ; al5 22:30 BP 114 / 75; Pulse 62; Resp 15; Pulse Ox 97% on R/A; al5 17:44 Body Mass Index 26.37 (61.23 kg, 152.4 cm) db 17:44 Pain Scale: Adult db MDM: 17:44 Medical Screening Exam initiated cp 22:07 Data reviewed: vital signs, nurses notes, lab test result(s), EKG, radiologic studies, cp CT scan, plain films. 22:07 Differential diagnosis: acute myocardial infarction, acute pericarditis, pericarditis, cp pleurisy, pneumonia, pneumothorax, pulmonary embolus, stable angina, thoracic aortic disection, unstable angina, hypertensive headache. The patient was given aspirin in the Emergency Department. Consideration of Admission/Observation Escalation of care including admission/observation considered. I considered the following discharge prescriptions or medication management in the emergency department Medications were administered in the Emergency Department. See MAR. Independent interpretation of the following test(s) in the Emergency Department EKG: See my EKG interpretation above. Care significantly affected by the following chronic conditions: Hypertension. Counseling: I had a detailed discussion with the patient and/or guardian regarding the historical points, exam findings, and any diagnostic results supporting the discharge/admit diagnosis, lab results, radiology results, the need for outpatient follow up, a machine printer hose, to return to the emergency department if symptoms worsen or persist or if there are any questions or concerns that arise at home. Response to treatment: the patient's symptoms have markedly improved after treatment. ED course: VSS. Pain improved. Discussed results of labs, ekg and radiology studies and recommendation of admission for continued monitoring. Patient requests discharge to home and understands she can return at any point for reevaluation. 12/21 17:51 Order name: Basic Metabolic Panel; Complete Time: 18:32 cp 12/21 18:32 Interpretation: Normal except: GLUC 111. cp 12/21 17:51 Order name: CBC with Diff; Complete Time: 18:32 cp 12/21 18:32 Interpretation: Normal except: NADIA% 41.3; LYM% 49.3. cp 12/21 17:51 Order name: LFT's; Complete Time: 18:32 cp 12/21 17:51 Order name: Magnesium; Complete Time: 18:32 cp 12/21 17:51 Order name: NT PRO-BNP; Complete Time: 18:32 cp 12/21 17:51 Order name: PT-INR; Complete Time: 18:32 cp 12/21 17:51 Order name: Troponin HS; Complete Time: 18:32 cp 12/21 21:14 Order name: Troponin HS; Complete Time: 21:54 cp 12/21 17:51 Order name: XRAY Chest (1 view); Complete Time: 20:58 cp 12/21 18:32 Order name: CT Head Brain wo Cont; Complete Time: 20:58 cp 12/21 18:33 Order name: CT Aorta for Dissection; Complete Time: 20:58 cp 12/21 17:51 Order name: Cardiac monitoring; Complete Time: 18:15 cp 12/21 17:51 Order name: EKG - Nurse/Tech; Complete Time: 17:53 cp 12/21 17:51 Order name: IV Saline Lock; Complete Time: 18:03 cp 12/21 17:51 Order name: Labs collected and sent; Complete Time: 18:03 cp 12/21 17:51 Order name: O2 Per Protocol; Complete Time: 18:15 cp 12/21 17:51 Order name: O2 Sat Monitoring; Complete Time: 18:15 cp 12/21 17:51 Order name: Blood Pressure Recheck: bilateral upper extremity; Complete Time: 18:26 cp 12/21 21:14 Order name: EKG - Nurse/Tech; Complete Time: 21:29 cp EC:56 Rate is 84 beats/min. Rhythm is regular. AZ interval is normal. QRS interval is normal. cp QT interval is normal. T waves are Inverted in lead aVR. Interpreted by me. Reviewed by me. 21:32 Rate is 69 beats/min. Rhythm is regular. AZ interval is normal. QRS interval is normal. cp QT interval is normal. T waves are Inverted in leads aVR, V3. Interpreted by me. Reviewed by me. Administered Medications: 18:26 Drug: Aspirin PO Chewable Tablet 324 mg PO once; 81 mg tablets x 4 Route: PO; ll1 19:24 Follow up: Response: No adverse reaction al5 18:27 Drug: morphine IVP or IV 4 mg IVP once over 4 mins Route: IVP; Infused Over: 4 mins; ll1 Site: right antecubital; 19:24 Follow up: Response: No adverse reaction; Pain is decreased al5 18:27 Drug: Ondansetron IVP 4 mg IVP once; over 2 minutes Route: IVP; Site: right antecubital;ll1 19:23 Follow up: Response: No adverse reaction; Nausea is decreased al5 18:27 Drug: NS 0.9% IV 1000 ml IV at 1 bolus Per protocol; to be given as a bolus over 60 ll1 minutes Route: IV; Rate: 1 bolus; Site: right antecubital; 19:24 Follow up: Response: No adverse reaction; IV Status: Completed infusion; IV Intake: al5 1000ml Disposition: 12/22 17:23 Co-signature as Attending Physician, Arvin Cunha MD I reviewed the patient's care rn provided by the Advanced Practice Provider and agree with the diagnosis and treatment plan. Disposition Summary: 12/21/24 22:08 Discharge Ordered Notes: Location: Home cp Problem: new cp Symptoms: have improved cp Condition: Stable cp Diagnosis - Chest pain, unspecified cp - Headache cp - Paresthesia of skin cp Followup: cp - With: Private Physician - When: 2 - 3 days - Reason: Recheck today's complaints Discharge Instructions: - Discharge Summary Sheet cp - Nonspecific Chest Pain, Adult cp - General Headache Without Cause cp - Paresthesia cp - Aspirin and Your Heart cp Forms: - Medication Reconciliation Form cp - Antibiotic Education cp - Prescription Opioid Use cp - Patient Portal Instructions cp - Leadership Thank You Letter cp Prescriptions: - Ibuprofen 800 mg Oral Tablet - take 1 tablet ORAL route every 8 hours As needed take with food; 30 tablet; cp Refills: 0, Product Selection Permitted Signatures: Dispatcher [employer] Arvin Herrera MD MD rn Page, Corey, PA PA cp Silva Saeed RN RN ll1 Ina Lundberg RN RN Elva Arzola RN al5 Corrections: (The following items were deleted from the chart) 12/21 17:52 17:52 BASIC METABOLIC PANEL+C.LAB.BRZ ordered. EDMS EDMS 17:52 17:52 CBC+H.LAB.BRZ ordered. EDMS EDMS 17:52 17:52 HEPATIC FUNCTION+C.LAB.BRZ ordered. EDMS EDMS 17:52 17:52 MAGNESIUM+C.LAB.BRZ ordered. EDMS EDMS 17:52 17:52 PROBNP+C.LAB.BRZ ordered. EDMS EDMS 17:52 17:52 PROTIME (+INR)+COAG.LAB.BRZ ordered. EDMS EDMS 17:52 17:52 Troponin High Sensitivity+C.LAB.BRZ ordered. EDMS EDMS 17: 17:52 Chest Single View+RAD.RAD.BRZ ordered. EDMS EDMS 18:31 17:55 This 59 yrs old Female presents to ER via Wheelchair with complaints of cp Headache, Chest Pain, Numbness - legs. cp 12/22 22:39 12/21 17:55 The patient or guardian reports chest pain that is located primarily in the cp anterior chest wall, left, cp 12/22 22:39 12/21 17:55 The pain radiates to the left arm, left back, cp cp
--- NOTE | 2024-12-21 22:09 | ER ---
Nurse's Notes [facility] Name: Jessie Espinosa Age: 59 yrs Sex: Female : 1965 Arrival Date: 12/21/2024 Time: 17:31 Bed 8 Private MD: Diagnosis: Chest pain, unspecified;Headache;Paresthesia of skin Presentation: 12/21 17:40 Chief complaint: Patient states: SHARP CHEST PAIN IN MIDDLE CHEST RADIATING TO BACK db STATES STARTED 30 MIN AGO. WAS DRIVING WHEN PAIN STARTED. REPORTS TAKING 3 EXTRA DOSES OF ATENOLOL. 17:40 Method Of Arrival: Wheelchair db 17:44 Coronavirus screen: Client denies travel out of the [place] in the last 14 days. At this db time, the client does not indicate any symptoms associated with coronavirus-19. Ebola Screen: Patient negative for fever greater than or equal to 101.5 degrees Fahrenheit, and additional compatible Ebola Virus Disease symptoms Patient denies exposure to infectious person. Patient denies travel to an Ebola-affected area in the 21 days before illness onset. No symptoms or risks identified at this time. Initial Sepsis Screen: Does the patient meet any 2 criteria? No. Patient's initial sepsis screen is negative. Does the patient have a suspected source of infection? No. Patient's initial sepsis screen is negative. Risk Assessment: Do you want to hurt yourself or someone else? Patient reports no desire to harm self or others. Onset of symptoms was December 21, 2024 at 17:00. 17:44 Acuity: JAMES 2 db Triage Assessment: 17:40 Headache History: Denies prior headaches. General: Appears in no apparent distress. db uncomfortable, Behavior is cooperative, agitated. Pain: Complains of pain in head and chest. Neuro: Level of Consciousness is awake, alert, obeys commands, Oriented to person, place, time, situation. Cardiovascular: Reports chest pain. Historical: - Allergies: 17:40 No Known Allergies; db - Home Meds: 17:40 Atenolol Oral [Active]; db - PMHx: 17:40 Anxiety; Hypertensive disorder; TACHYCARDIA; db - PSHx: 17:40 ABLATION; db - Immunization history:: Adult Immunizations unknown. - Infectious Disease History:: Denies. - Social history:: Smoking status: Patient denies any tobacco usage or history of. Screenin:33 [facility] ED Fall Risk Assessment (Adult) History of falling in the last 3 months, aa5 including since admission No falls in past 3 months (0 pts) Confusion or Disorientation No (0 pts) Intoxicated or Sedated No (0 pts) Impaired Gait Yes (1 pt) Mobility Assist Device Used Yes (1 pt) Altered Elimination Yes (1 pt) Score/Fall Risk Level 3 or more points = High Risk Maintained a safe environment, Hourly rounding (assess needs \T\ fall precautionary measures) done. Abuse screen: Denies threats or abuse. Nutritional screening: No deficits noted. Tuberculosis screening: No symptoms or risk factors identified. Assessment: 18:33 General: Appears uncomfortable, Behavior is calm, cooperative, appropriate for age. aa5 Pain: Complains of pain in chest Quality of pain is described as pressure. Neuro: Reports headache numbness in right leg and left leg. Cardiovascular: Reports chest pain. Musculoskeletal: Reports pain in right leg and left leg. 19:23 General: Appears in no apparent distress. comfortable, Behavior is calm, cooperative. al5 Pain: Complains of pain in head. Neuro: Level of Consciousness is awake, alert, obeys commands, Oriented to person, place, time, situation, Reports headache. Cardiovascular: Capillary refill < 3 seconds Patient's skin is warm and dry. Respiratory: Airway is patent Respiratory effort is even, unlabored, Respiratory pattern is regular, symmetrical. GI: No signs and/or symptoms were reported involving the gastrointestinal system. : No signs and/or symptoms were reported regarding the genitourinary system. EENT: No signs and/or symptoms were reported regarding the EENT system. Derm: Skin is intact, is healthy with good turgor, Skin is pink, warm \T\ dry. normal. Musculoskeletal: No signs and/or symptoms reported regarding the musculoskeletal system. 20:47 Reassessment: Patient appears in no apparent distress at this time. No changes from al5 previously documented assessment. Patient and/or family updated on plan of care and expected duration. Pain level reassessed. Patient is alert, oriented x 3, equal unlabored respirations, skin warm/dry/pink. 21:38 Reassessment: Patient appears in no apparent distress at this time. No changes from al5 previously documented assessment. Patient and/or family updated on plan of care and expected duration. Pain level reassessed. Patient is alert, oriented x 3, equal unlabored respirations, skin warm/dry/pink. 22:24 Reassessment: Patient appears in no apparent distress at this time. No changes from al5 previously documented assessment. Patient and/or family updated on plan of care and expected duration. Pain level reassessed. Patient is alert, oriented x 3, equal unlabored respirations, skin warm/dry/pink. Vital Signs: 17:44 BP 138 / 91; Pulse 90; Resp 16; Temp 97.9; Pulse Ox 100% ; Weight 61.23 kg; Height 5 db ft. 0 in. ; Pain 10/10; 18:27 BP 116 / 84 LA; ll1 18:27 BP 123 / 87 RA; ll1 18:45 BP 112 / 70; Pulse 71; Resp 16; Pulse Ox 99% ; ll1 19:21 BP 110 / 72; Pulse 66; Resp 15; Pulse Ox 94% on R/A; al5 20:00 BP 100 / 67; Pulse 63; Resp 14; Pulse Ox 97% on R/A; al5 21:00 BP 120 / 74; Pulse 73; Resp 16; Pulse Ox 96% on R/A; al5 21:30 BP 111 / 68; Pulse 68; Resp 13; Pulse Ox 96% on R/A; al5 22:00 BP 115 / 77; Pulse 67; Resp 15; Pulse Ox 97% ; al5 22:30 BP 114 / 75; Pulse 62; Resp 15; Pulse Ox 97% on R/A; al5 17:44 Body Mass Index 26.37 (61.23 kg, 152.4 cm) db 17:44 Pain Scale: Adult db ED Course: 17:32 Patient arrived in ED. am2 17:44 Jose Luis Higgins PA is PHCP. cp 17:44 Arvin Cunha MD is Attending Physician. cp 17:45 Triage completed. db 18:03 Basic Metabolic Panel Sent. bc6 18:03 CBC with Diff Sent. bc6 18:03 LFT's Sent. bc6 18:03 Magnesium Sent. bc6 18:03 NT PRO-BNP Sent. bc6 18:03 PT-INR Sent. bc6 18:03 Troponin HS Sent. bc6 18:03 Initial lab(s) drawn, by oh, sent to lab. Inserted saline lock: 20 gauge in right bc6 antecubital area, using aseptic technique. Blood collected. Flushed with 10 mL NS. 18:13 Silva Saeed, RN is Primary Nurse. ll1 18:15 Patient placed in an exam room, on a stretcher. ll1 18:20 Provided Education on: ER procedures and process. aa5 18:32 Door closed. Lights dimmed. Warm blanket given. aa5 18:34 Patient has correct armband on for positive identification. Bed in low position. Client aa5 placed on continuous cardiac and pulse oximetry monitoring. NIBP monitoring applied. monitor technician on. 18:43 XRAY Chest (1 view) In Process Unspecified. EDMS 20:46 CT Head Brain wo Cont In Process Unspecified. EDMS 20:47 CT Aorta for Dissection In Process Unspecified. EDMS 21:29 Troponin HS Sent. al5 23:23 No provider procedures requiring assistance completed. IV discontinued, intact, al5 bleeding controlled, No redness/swelling at site. Pressure dressing applied. Administered Medications: 18:26 Drug: Aspirin PO Chewable Tablet 324 mg PO once; 81 mg tablets x 4 Route: PO; ll1 19:24 Follow up: Response: No adverse reaction al5 18:27 Drug: morphine IVP or IV 4 mg IVP once over 4 mins Route: IVP; Infused Over: 4 mins; ll1 Site: right antecubital; 19:24 Follow up: Response: No adverse reaction; Pain is decreased al5 18:27 Drug: Ondansetron IVP 4 mg IVP once; over 2 minutes Route: IVP; Site: right antecubital;ll1 19:23 Follow up: Response: No adverse reaction; Nausea is decreased al5 18:27 Drug: NS 0.9% IV 1000 ml IV at 1 bolus Per protocol; to be given as a bolus over 60 ll1 minutes Route: IV; Rate: 1 bolus; Site: right antecubital; 19:24 Follow up: Response: No adverse reaction; IV Status: Completed infusion; IV Intake: al5 1000ml Medication: 18:34 VIS not applicable for this client. aa5 Intake: 19:24 IV: 1000ml; Total: 1000ml. al5 Outcome: 22:08 Discharge ordered by . cp 23:23 Discharged to home ambulatory, with significant other, al5 23:23 Condition: good 23:23 Discharge instructions given to patient, significant other, Instructed on discharge instructions, follow up and referral plans. medication usage, Demonstrated understanding of instructions, follow-up care, medications, Prescriptions given X 1, 23:24 Patient left the ED. al5 Signatures: Dispatcher [employer] EDMS Susan Anthony RN RN aa5 Jose Luis Higgins PA PA cp Moreno, Amanda am2 Silva Saeed RN RN ll1 Ina Lundberg RN RN db Uyen Trivedi 6 Elva Arzola RN RN al5 Corrections: (The following items were deleted from the chart) 17:45 17:40 Chief complaint: Patient states: SHARP CHEST PAIN IN MIDDLE CHEST RADIATING TO db BACK STATES STARTED 30 MIN AGO. WAS DRIVING WHEN PAIN STARTED db 18:15 17:44 Arm band placed on Patient placed in an exam room, db ll1
[2024-12-22 05:34] VITALS: TEMP 97.9
[2024-12-22 05:42] VITALS: O2SAT 97
[2024-12-22 05:43] VITALS: BP 114/75
--- NOTE | 2024-12-24 12:37 | EKG ---
Test Date: 2024-12-21 Test Time: 21:25:45 Component Assembler: KIKI MEASUREMENT RESULTS: Intervals: Rate: 69 MO: 156 QRSD: 84 QT: 386 QTc: 413 [facility]: P: 71 MO: 156 QRS: 43 T: 28 INTERPRETIVE STATEMENTS: Normal sinus rhythm Low voltage QRS Cannot rule out Anteroseptal infarct, age undetermined Abnormal ECG Compared to ECG 12/21/2024 17:51:13 No significant changes Electronically Signed On 12-24-24 12:33:06 FOREST MANAGEMENT PROFESSOR by Marquez Klein
--- NOTE | 2024-12-24 12:39 | EKG ---
Test Date: 2024-12-21 Test Time: 17:51:13 Hunting Sales Leader: YELENA MEASUREMENT RESULTS: Intervals: Rate: 84 GA: 142 QRSD: 82 QT: 348 QTc: 411 [place]: P: 54 GA: 142 QRS: 35 T: 30 INTERPRETIVE STATEMENTS: Normal sinus rhythm Low voltage QRS Cannot rule out Anterior infarct, age undetermined Abnormal ECG Compared to ECG 11/25/2018 23:12:40 Low QRS voltage now present Myocardial infarct finding now present T-wave abnormality no longer present Electronically Signed On 12-24-24 12:33:19 CHECKROOM CHIEF by Marquez Klein
== END 2024-12-21 23:24 | disposition home or self-care (01) ==
LOC: ER 17:31
DX: R07.9 Chest pain, unspecified (principal); R51.9 Headache, unspecified; R20.2 Paresthesia of skin; I10 Essential (primary) hypertension; F41.9 Anxiety disorder, unspecified
CPT/HCPCS: 96361; 93005; 85025; 80048; 36415; 83735; 85610; 80076; 84484 ×2; 83880; 70450; 71275; 74175; 71045; 96375; 96374; 99285; Q9967; J2405; J7030